=== PATIENT | male | born 1980 | race Caucasian/White ===

== ENCOUNTER 2017-11-11 12:59 | Emergency (ER) | payer SELFPAY ==
[~2017-11-11] VITALS: Ht 180.3 cm; Wt 109.3 kg
[2017-11-11 13:05] VITALS: BP 122/81
[2017-11-11] MEDS: cefTRIAXone 1,000 MG in LIDOCAINE 1% ***ER ONLY *** 2.1 ML IM ONE ×2 (14:09→14:36)
[2017-11-11] MEDS: HYDROcodone/APAP 5/325 MG 1 TAB TAB PO ONE (14:18)
[2017-11-11] MEDS ORDERED: NEOMYCIN/POLYMYXIN/BACITRACIN 0.9 GM/1 PKT TP ONE (15:21)
[2017-11-11 15:43] VITALS: BP 122/81
[2017-11-11] MEDS: BACITRACIN ZINC/POLYMYXIN B OINT 30 GM TUBE TP SCH (15:46)
== END 2017-11-11 15:45 | disposition home or self-care (01) ==
LOC: MED 12:59
DX: S61.012A Laceration without foreign body of left thumb without damage to nail, initial encounter (principal); W26.0XXA Contact with knife, initial encounter; Y93.89 Activity, other specified; Y92.69 Other specified industrial and construction area as the place of occurrence of the external cause; Y99.0 Civilian activity done for income or pay
CPT/HCPCS: 12002; 90471; 90715; 96372; 99284; J0696; J2001